=== PATIENT | female | born 1965 | race Caucasian/White ===

== ENCOUNTER 2019-10-01 12:06 | Emergency (ER) | payer BC, SELFPAY ==
[2019-10-01 12:20] VITALS: BP 108/69; PULSE 98; RESP 16; TEMP 37.2; O2SAT 99
--- NOTE | 2019-10-01 12:20 | ED.SKABFB ---
HPI - Skin/Abscess/Foreign Bdy General Chief complaint: Skin/Abscess/Foreign Body Stated complaint: boil/bottom History of Present Illness HPI narrative: This is a [age]-year-old female that comes in disheveled patient comes in stating that she does not know she has been bit or if she does have some kind of infection going on on her right hip and pelvic area states that it swollen and draining both of them states that she was able to get something out of it she noticed them on . Patient denies any fever nausea and/or vomiting. Related Data Allergies Allergy/AdvReac Type Severity Reaction Status Date / Time No Known Allergies Allergy Unverified 06/13/17 05:05 Review of Systems Review of Systems: Narrative: CONSTITUTIONAL: Denies fever, chills, or sweats. EYES: Denies visual changes, redness, or discharge. ENT: Denies rhinorrhea, congestion, sore throat, or otalgia. CARDIOVASCULAR:Denies chest pain, palpitations, or edema. RESPIRATORY: Denies cough or dyspnea. GASTROINTESTINAL: Denies abdominal pain, nausea, vomiting, or diarrhea. GENITOURINARY: Denies dysuria or hematuria. SKIN:[Denies rash or itching. abscess on hip and pelvic area MUSCULOSKELETAL:Denies back pain, joint pain, or myalgia. NEUROLOGIC: Denies headache, numbness, or weakness. PSYCHIATRIC:Denies anxiety or depression PMFSH Comments At time as signature, I have reviewed and agree with nursing past medical, social, surgical and family history. Please see nursing chart for further information. There is no relevant family history pertinent to the presenting complaint. Exam Narrative: Exam Narrative: GENERAL:Well-appearing, well-nourished, and in no acute distress. HEAD:Normocephalic, atraumatic. EYES: PERRLA and EOMI. ENT: Nares clear, no rhinorrhea or epistaxis. Mucous membranes moist. NECK: Supple. CHEST: Clear to auscultation. No respiratory distress. HEART: Regular rate and rhythm. No murmur heard. Normal peripheral pulses. ABDOMEN: Soft, nontender, nondistended, normal active bowel sounds. EXTREMITIES: Normal range of motion. No edema. SKIN: Warm, dry, no rash. right hip area is swollen and has erythema with drainage of bloody and yellowish green drainage front pubic area has erythema yellowish drainage. NEURO: No focal deficits. Alert and oriented x3. Procedures Abscess I/D lower extremity: Date of Incision: 10/01/19 Time of Incision: 12:54 Side (if applicable): right Sedation/analgesia: none Local Anesthetic: none Irrigation: No Packing used?: none I&D Results: Pus and Blood Complications: pain and bleeding Abcess I&D Additional Comments: Patient tolerated and still draining from the left hip with dressing applied and melanie. Used a #11 scalpels to open with less than 0.25 ml opening draining copious amounts of secretion. 4x4 placed and tape applied on the hip. Patient already draining from pelvic pubic area. Patient states she believes it is a ingrown hair but she pulled it and it started to drain and the swelling went down. MDM - Skin/Abscess/Foreign Bdy Differential Diagnosis Differential diagnosis: Likely abscess of skin or subcutaneous tissue, cellulitis, eczema, insect bites, impetigo and contact dermatitis Discharge Plan Discharge Clinical Impression: Cellulitis Qualifiers: Site of cellulitis: unspecified site Qualified Code(s): L03.90 - Cellulitis, unspecified Abscess of skin or subcutaneous tissue Qualifiers: Site of cutaneous abscess: trunk Site of cutaneous abscess of trunk: unspecified site Qualified Code(s): L02.219 - Cutaneous abscess of trunk, unspecified Patient Disposition: Home, Self-Care Condition: Stable Instructions: Antibiotic Form, Cellulitis (ED), Abscess (ED), Abscess Incision and Drainage (DC) Additional Instructions: Warm compresses to the area 20-30 minutes 4-6 times a day and as needed elevate the area if possible antibiotic as directed--clarice
--- NOTE | 2019-10-01 12:39 | PC.NURSE ---
wound cleansed and dressed with neopsorin and telfa dressing
== END 2019-10-01 13:02 | disposition home or self-care (01) ==
PROVIDERS: Emergency Provider Nurse Practitioner Family
DX: L02.214 Cutaneous abscess of groin (principal); L02.415 Cutaneous abscess of right lower limb; L03.115 Cellulitis of right lower limb; L03.314 Cellulitis of groin
CPT/HCPCS: 10060; 87070; 87075; 87147; 87186; 87205; 99213; G0463

== ENCOUNTER 2020-09-19 17:00 | Emergency (ER) | payer BC, SELFPAY ==
[2020-09-19 17:16] VITALS: BP 124/69; PULSE 81; RESP 20; TEMP 36.6; O2SAT 100
--- NOTE | 2020-09-19 17:17 | ED.GENADULT ---
HPI - General Adult General Chief complaint: Ear Stated complaint: Ear Pain Time Seen by Provider: 09/19/20 17:17 Source: patient and RN notes reviewed Mode of arrival: ambulatory Limitations: no limitations History of Present Illness HPI narrative: 55-year-old female complains of right otalgia for the past 2 days. Arleen report increase in pressure over the past 24 hours. Motrin last this morning with little relief. Denies itching or drainage. Denies difficulty hearing, syncopal episodes, dizziness, or seizure activity. Recently had mild URI symptoms. No facial swelling. Rhinorrhea and nasal congestion. No high fevers, sore throat, drooling, neck or throat swelling. No chest pain or shortness of breath. Denies nausea, vomiting, and abdominal pain. Tolerating liquids well. Remains active. LMP postmenopausal. The patient reports she have not been diagnosed with COVID-19. The patient reports she is not waiting for the results of a COVID-19 lab test. The patient reports she do not have chills, weakness, or fatigue. The patient reports she do not have a new or worsening cough or shortness of breath. Denies chest pain. The patient reports she do not have any loss of taste or smell, and diarrhea. Denies recent traveling. Denies concerns for COVID-19 or exposures been home with limited outdoor exposure except for essential household needs, work, and return home. At this time, patient is not suspected of having COVID-19. Some parts of this dictation were generated by voice recognition software and may contain typographical and/or grammatical inaccuracies. Related Data Allergies Allergy/AdvReac Type Severity Reaction Status Date / Time No Known Allergies Allergy Unverified 06/13/17 05:05 Review of Systems Review of Systems: Narrative: CONSTITUTIONAL: Denies fever, chills, sweats. EYES: Denies visual changes, redness, discharge. ENT: Complains of rhinorrhea, congestion, bilateral ear pressure. Denies tinnitus, decrease hearing, sore throat. CARDIOVASCULAR: Denies chest pain, palpitations, edema. RESPIRATORY: Denies dyspnea, wheezing, cough. GASTROINTESTINAL: Denies abdominal pain, nausea, vomiting, diarrhea. GENITOURINARY: Denies dysuria, hematuria, abnormal discharge. SKIN: Denies rash or itching. MUSCULOSKELETAL: Denies acute back pain, joint pain, or myalgia. NEUROLOGIC: Denies numbness or focal weakness. PSYCHIATRIC: Denies anxiety or depression. All systems reviewed & are unremarkable except as noted in HPI and below. [facility] Past Medical History Medical History (Updated 09/20/20 @ 00:00 by Kyle Jimenez) delivery delivered Surgical History Surgical History (Updated 09/19/20 @ 17:31 by ISELA Sweeney) H/O section X2 Family History Family History (Updated 09/19/20 @ 17:34 by ISELA Sweeney) Father Heart disease Mother Alive and well Social History Social History (Updated 09/19/20 @ 17:35 by ISELA Sweeney) Smoking packs per day: 0.5 Smoking cigarettes per day: 10.0 Years smoked: 39 Smoking pack-years: 19.50 Smoking status: Current every day smoker Tobacco type: cigarettes Second hand tobacco smoke exposure: No Alcohol intake: never Substance use: never Living arrangements: with family Occupation/Education: occupation Gender identity (if verbalized by the patient): Female Sexual Orientation (if Verbalized by the Patient): Straight or Heterosexual Comments At time of signature, agree with nurse past medical, surgical, social, and family history. There is no relevant family history pertinent to the presenting complaint. Exam Narrative: Exam Narrative: GENERAL: This is a well-nourished, well-developed patient, in no apparent distress. Talks in full sentences and ambulates with steady gait without dyspnea. HEAD: Normocephalic, atraumatic. EYES: PERRL. Sclera clear/white. Vision is grossly intact.
== END 2020-09-19 17:44 | disposition home or self-care (01) ==
PROVIDERS: Emergency Provider Nurse Practitioner Family
DX: H93.8X1 Other specified disorders of right ear (principal); H65.192 Other acute nonsuppurative otitis media, left ear; J00 Acute nasopharyngitis [common cold]; J01.90 Acute sinusitis, unspecified; F17.210 Nicotine dependence, cigarettes, uncomplicated
CPT/HCPCS: 99213; G0463

== ENCOUNTER 2020-11-05 15:09 | Outpatient (CLI) | payer BC, SELFPAY | END 2020-11-05 15:10 | disposition home or self-care (01) | PROVIDERS: Visit Provider Otolaryngology | DX: H93.90 Unspecified disorder of ear, unspecified ear (principal); H69.01 Patulous Eustachian tube, right ear; H93.8X9 Other specified disorders of ear, unspecified ear | CPT/HCPCS: 92557; 92567 ==

== ENCOUNTER 2022-03-02 15:33 | Emergency (ER) | payer OTHER, SELFPAY ==
[2022-03-02 15:48] VITALS: BP 94/61; PULSE 79; RESP 16; TEMP 36.7; O2SAT 100
--- NOTE | 2022-03-02 16:33 | ED.GENADULT ---
HPI - General Adult General Chief complaint: Skin/Abscess/Foreign Body Stated complaint: rash History of Present Illness HPI narrative: Patient presents for evaluation of painful pruritic rash to her bilateral buttocks for the last 2 weeks. She indicates symptoms started after she switched to uniform at work. She was previously wearing cotton jeans. She has since been moved to a very heavy fabric that she feels like does not allow her skin to breathe. No new lotions, soaps, detergents, topical products prior to the time of symptom onset. She applied some hydrocortisone cream and some Neosporin without considerable improvement in her symptoms or after. She is not diabetic. No additional complaints or concerns. Related Data Allergies Allergy/AdvReac Type Severity Reaction Status Date / Time No Known Allergies Allergy Verified 03/02/22 15:58 Review of Systems Review of Systems: CONSTITUTIONAL: Denies fever, chills, or sweats. EYES: Denies visual changes, redness, or discharge. ENT: Denies rhinorrhea, congestion, sore throat, or otalgia. CARDIOVASCULAR: Denies chest pain, palpitations, or edema. RESPIRATORY: Denies cough or dyspnea. GASTROINTESTINAL: Denies abdominal pain, nausea, vomiting, or diarrhea. GENITOURINARY: Denies dysuria or hematuria. SKIN: Reports pruritic and painful rash to bilateral buttocks MUSCULOSKELETAL: Denies back pain, joint pain, or myalgia. NEUROLOGIC: Denies headache, numbness, dizziness, or weakness. PSYCHIATRIC: Denies anxiety or depression. [facility] Past Medical History Medical History delivery delivered Surgical History Surgical History H/O section X2 Family History Family History Father Heart disease Hypertension Mother Alive and well Cerebrovascular accident Social History Social History Smoking packs per day: 0.5 Smoking cigarettes per day: 10.0 Years smoked: 39 Smoking pack-years: 19.50 Smoking status: Current every day smoker Tobacco type: cigarettes Second hand tobacco smoke exposure: No Alcohol intake: never Substance use: never Gender identity (if verbalized by the patient): Female Sexual Orientation (if Verbalized by the Patient): Straight or Heterosexual Exam Narrative: GENERAL: Well-appearing, well-nourished, and in no acute distress. HEAD: Normocephalic, atraumatic. EYES: PERRLA and EOMI. ENT: Nares clear, no rhinorrhea or epistaxis. Mucous membranes moist. Oropharynx without tonsillar hypertrophy exudate or other lesions. Bilateral TMs pearly almaguer nonbulging NECK: Supple. No adenopathy or masses. No carotid bruits or JVD CHEST: Clear to auscultation. No respiratory distress. No wheezes rales or rhonchi HEART: Regular rate and rhythm. No murmur heard. Normal peripheral pulses. ABDOMEN: Soft, nontender, nondistended, normal active bowel sounds. EXTREMITIES: Normal range of motion. No edema. SKIN: Raised erythematous rash in a patchy distribution noted to bilateral buttocks NEURO: No focal deficits. Alert and oriented x3. PSYCH: Normal mood and affect. Course Course Emergency Course: This is a 57-year-old female that presented for evaluation of a painful pruritic rash to bilateral buttocks. Obtained viral and bacterial cultures. I suspect that this is tinea and will treat with ketoconazole. In the event that she does not have considerable improvement in her symptoms with application of ketoconazole, she can switch to triamcinolone. I advised that she not use triamcinolone at the present time as it could make it fungal infection worse. She should follow-up outpatient for further evaluation and treatment. She should ask her employer she can switch to a cotton pant. Go to t
== END 2022-03-02 16:40 | disposition home or self-care (01) ==
PROVIDERS: Emergency Provider Nurse Practitioner
DX: B35.9 Dermatophytosis, unspecified (principal); F17.210 Nicotine dependence, cigarettes, uncomplicated
CPT/HCPCS: 87070; 87075; 87205; 87255; 99213; G0463

== ENCOUNTER 2022-03-10 09:03 | Emergency (ER) | payer OTHER, SELFPAY ==
[2022-03-10 09:15] VITALS: BP 105/64; PULSE 87; RESP 16; TEMP 37.2; O2SAT 98
--- NOTE | 2022-03-10 09:34 | ED.URI ---
HPI - URI/Sore Throat General Chief Complaint: Upper Respiratory Infection Stated Complaint: Coughing,Both Rib Pain Time Seen by Provider: 03/10/22 09:34 History of Present Illness HPI Narrative: Arleen Calix is a 57 yo female with ano PMH comes with a dry cough and that is aching and spontaneous with deep breath that she states Throughout most of the night is a lot of postnasal drip and states that she has not been around antibiotics been sick. No fever, no N/V/D. She took a COVID test yesterday it was negative Related Data Allergies Allergy/AdvReac Type Severity Reaction Status Date / Time No Known Allergies Allergy Verified 03/10/22 09:27 Review of Systems Review of Systems: CONSTITUTIONAL: Denies fever, chills, sweats. EYES: Denies visual changes, redness, discharge. ENT: Denies rhinorrhea, congestion, sore throat, otalgia. CARDIOVASCULAR: Denies chest pain, palpitations, edema. RESPIRATORY: Denies dyspnea, wheezing, has cough, complaining of sore ribs GASTROINTESTINAL: Denies abdominal pain, nausea, vomiting, diarrhea. GENITOURINARY: Denies dysuria, hematuria, abnormal discharge SKIN: Denies rash or itching. NEUROLOGIC: Denies numbness, or focal weakness. PSYCHIATRIC: Denies anxiety or depression. [facility] Past Medical History Medical History delivery delivered Surgical History Surgical History H/O section X2 Family History Family History Father Heart disease Hypertension Mother Alive and well Cerebrovascular accident Social History Social History Smoking packs per day: 0.5 Smoking cigarettes per day: 10.0 Years smoked: 39 Smoking pack-years: 19.50 Smoking status: Current every day smoker Tobacco type: cigarettes Second hand tobacco smoke exposure: No Alcohol intake: never Substance use: never Gender identity (if verbalized by the patient): Female Sexual Orientation (if Verbalized by the Patient): Straight or Heterosexual Comments At time of signature, I agree with nursing past medical, surgical, social and family history. There is no relevant family history pertinent to the presenting complaint. Exam Narrative: GENERAL: This is a well-nourished, well-developed patient, in mild distress. HEAD: normocephalic, atraumatic. EYES: PERRL. Sclera clear/white. Vision is grossly intact. EARS: External ears normal, auditory canals erythema and without drainage, TMs normal without perforation. Hearing grossly intact. NOSE: External nose normal without nasal discharge, nares without redness, has rhinorrhea. THROAT: Mucous membranes moist, posterior pharynx erythema and clear postnasal drip NECK: Neck supple, non-tender CARDIOVASCULAR: Regular rate and rhythm without murmurs, gallops, or rubs. RESPIRATORY: Clear to auscultation. Breath sounds equal bilaterally. No wheezes, rales, or rhonchi. Has dry cough GASTROINTESTINAL: Not done SKIN: warm, intact with no suspicious lesions or rash, good texture and turgor. NEURO: awake, alert, and oriented to person, place and time. There were no obvious focal neurologic abnormalities. Steady gait EXTREMITIES: Normal range of motion. BACK: Nontender without deformity Course Course Emergency Course: Patient here with cough and painful ribs that started yesterday, she had negative COVID test at home and has not been around anyone that is ill Patient started on prednisone 40 mg every morning and Tessalon Perles Tylenol or ibuprofen for pain Level of Care: Express Care Visit Vital Signs Vital signs: Vital Signs Temperature 98.9 F 03/10/22 09:15 Pulse Rate 87 03/10/22 09:15 Respiratory Rate 16 03/10/22 09:15 Blood Pressure 105/64 03/10/22 09:15 Pulse Oximetry 98 03/10/22 09:15 O
== END 2022-03-10 09:46 | disposition home or self-care (01) ==
PROVIDERS: Emergency Provider Nurse Practitioner
DX: J40 Bronchitis, not specified as acute or chronic (principal); F17.210 Nicotine dependence, cigarettes, uncomplicated
CPT/HCPCS: 99213; G0463

== ENCOUNTER 2023-04-07 15:56 | Emergency (ER) | payer OTHER, SELFPAY ==
--- NOTE | ~2023-04-07 | XR_ITS ---
EXAMINATION: XR hip RT 2V w AP pelvis INDICATION: Right hip pain TECHNIQUE: AP view of the pelvis and two views of the right hip are obtained. COMPARISON: None available FINDINGS: Bone alignment is normal. There is no fracture. There is mild osteoarthritis of the hips. P hleboliths are noted in the pelvis. IMPRESSION: 1. No acute osseous abnormality. Reviewed, dictated and finalized at location F.
--- NOTE | ~2023-04-07 | XR_ITS ---
EXAMINATION: XR lumbar spine 2-3V DATE: 04/07/2023 16:41 INDICATION: Low back pain TECHNIQUE: Anteroposterior and lateral views of the lumbar spine, and cone-down lateral view of the l umbosacral junction were obtained. COMPARISON: 02/07/2015; CT, 08/30/2016 FINDINGS: There are 7 mm of anterolisthesis of L3 on L4, new since the comparison examination. The ve rtebral bodies are otherwise aligned. There is mild loss of intervertebral disc space height at L3-4. The vertebral body heights are maintained. No fracture is identified. IMPRESSION: 1. Interval development of grade 1 anterolisthesis of L3 on L4 without acute findings identified. In the absence of acute symptoms, follow-up MRI on a nonemergent basis is recommended. Reviewed, dictated and finalized at location F. IMPRESSION: 1. Interval development of grade 1 anterolisthesis of L3 on L4 without acute fi ndings identified. In the absence of acute symptoms, follow-up MRI on a nonemer gent basis is recommended.
[2023-04-07 15:58] VITALS: BP 140/65; PULSE 93; RESP 16; TEMP 36.5; O2SAT 99
--- NOTE | 2023-04-07 16:26 | ED.EXTPRO ---
HPI - Extremity Problem General Chief complaint: Extremity Problem,Nontraumatic Stated complaint: hip pain Time Seen by Provider: 04/07/23 16:07 History of Present Illness HPI Narrative: 58-year-old female presents to the emergency room with subacute right hip pain has been present for 3 weeks. Patient states the pain is radiating down the back of her leg and stops at her knee. Patient denies any known injury or trauma. States the pain is sharp, and is mildly ill alleviated with 800 mg of ibuprofen. Patient denies fever. Denies any low back red flags. Denies IV drug use. Denies saddle anesthesia or genitourinary changes. Related Data Allergies Allergy/AdvReac Type Severity Reaction Status Date / Time No Known Allergies Allergy Verified 04/07/23 15:59 Review of Systems Review of Systems: All systems reviewed & are unremarkable except as noted in HPI and below PMFSH Past Medical History Medical History delivery delivered Surgical History Surgical History H/O section X2 Family History Family History Father Heart disease Hypertension Mother Alive and well Cerebrovascular accident Social History Social History Smoking packs per day: 0.5 Smoking cigarettes per day: 10.0 Years smoked: 39 Smoking pack-years: 19.50 Smoking status: Current every day smoker Tobacco type: cigarettes Second hand tobacco smoke exposure: No Alcohol intake: never Substance use: never Living arrangements: with family Occupation/Education: occupation Gender identity (if verbalized by the patient): Female Sexual Orientation (if Verbalized by the Patient): Straight or Heterosexual Exam Const: General: healthy appearing, no acute distress and alert HENMT: Head: normal to inspection Eyes: Pupils: Equal, round and reactive pupils present EOM: EOMs intact bilaterally Resp: Effort & Inspection: normal respiratory effort Auscultation: clear to auscultation bilaterally Cardio: Rate: regular rate Rhythm: regular rhythm Back/Spine/Pelvis: Other: Lumbar spine: No midline tenderness or stepoffs. FROM. -SLE bilaterally. MAEW Distal pulses present +TTP in gluteal muscles Skin: General skin exam: normal color Extrem: General: normal to inspection, no clubbing, cyanosis or edema and no pedal edema Course Vital Signs Vital signs: Vital Signs Temperature 36.5 C 04/07/23 15:58 Pulse Rate 93 04/07/23 15:58 Respiratory Rate 16 04/07/23 15:58 Blood Pressure 140/65 04/07/23 15:58 Pulse Oximetry 99 04/07/23 15:58 Oxygen Delivery Room Air 04/07/23 15:58 Temperature 36.5 C 04/07/23 15:58 Pulse Rate 93 04/07/23 15:58 Respiratory Rate 16 04/07/23 15:58 Blood Pressure 140/65 04/07/23 15:58 Pulse Oximetry 99 04/07/23 15:58 Oxygen Delivery Room Air 04/07/23 15:58 Discharge Plan Discharge Clinical Impression: Acute low back pain with sciatica Qualifiers: Back pain laterality: right Sciatica laterality: sciatica of right side Qualified Code(s): M54.41 - Lumbago with sciatica, right side Patient Disposition: Home, Self-Care Condition: Stable Instructions: Antibiotic Form, Acute Low Back Pain (ED) Prescriptions: New naproxen 500 mg tablet 500 mg PO BID Qty: 30 0RF methocarbamol 750 mg tablet 750 mg PO TID Qty: 30 0RF No Action prednisone 20 mg tablet 40 mg PO DAILY Qty: 10 0RF benzonatate 200 mg capsule 200 mg PO TID PRN (Reason: cough) Qty: 20 0RF fluticasone propionate [Allergy Relief (fluticasone)] 50 mcg/actuation spray,suspension 1 spray NASAL BID Qty: 16 0RF Rx Instructions: administer into each nostril loratadine [Claritin] 10 mg tablet 1
[2023-04-07 17:03] VITALS: BP 129/72; PULSE 68; RESP 15; O2SAT 96
== END 2023-04-07 17:15 | disposition home or self-care (01) ==
PROVIDERS: Emergency Provider Nurse Practitioner Family
DX: M54.41 Lumbago with sciatica, right side (principal); F17.210 Nicotine dependence, cigarettes, uncomplicated
CPT/HCPCS: 72100; 73502; 99284

== ENCOUNTER 2023-07-08 15:38 | Emergency (ER) | payer OTHER, SELFPAY ==
[2023-07-08 16:02] VITALS: BP 128/71; PULSE 96; RESP 16; TEMP 36.8; O2SAT 98
--- NOTE | 2023-07-08 18:38 | PC.NURSE ---
called for VS x2 , no answer
--- NOTE | 2023-07-08 19:02 | PC.NURSE ---
Pt called x1, no answer. Pt left without being seen
== END 2023-07-08 20:34 | disposition left against medical advice (07) ==
LOC: ANHED 19:18
DX: R10.9 Unspecified abdominal pain (principal)
CPT/HCPCS: 99199